=== PATIENT | male | born 1950 | race African-American/Black ===

== ENCOUNTER 2025-09-17 05:54 | Emergency (ER) | payer OTHER ==
[2025-09-17 06:23] LABS: #Basophils 0.0 thou/uL (0.0-0.2); #Eosinophils 0.3 thou/uL (0.0-0.7); #Lymphocytes 2.4 thou/uL (1.20-3.40); #Monocytes 0.3 thou/uL (0.11-0.59); #Neutrophils 3.0 thou/uL (1.40-6.50); %Basophils 0.4 % (0.0-1.0); %Eosinophils 4.5 % (0.0-10.0); %Lymphocytes 40.4 % (21.0-51.0); %Monocytes 4.3 % (0.0-10.0); %Neutrophils 50.4 % (42.0-75.0); Hematocrit 38.9 % (42.0-52.0); Hemoglobin 12.6 g/dL (14.0-18.0); Mean Corpuscular Hemoglobin 26.1 pg (27.0-31.0); Mean Corpuscular Volume 81.0 fl (78.0-98.0); Platelet Count 138 10x3/uL (130-400); Red Blood Cell (RBC) Count 4.81 mill/uL (4.70-6.10); White Blood Cell (WBC) Count 6.0 10x3/uL (4.8-10.8)
[2025-09-17 06:33] LABS: ALT (SGPT) 71 U/L (Less than 45); AST (SGOT) 105 U/L (11-34); Albumin 3.8 g/dL (3.1-4.5); Alkaline Phosphatase 107 U/L (40-110); Anion Gap 18 mmol/L (10-20); BUN (Urea Nitrogen) 24 mg/dL (8.4-25.7); Bilirubin, Total 0.3 mg/dL (0.3-1.2); Calc. Creatinine Clearance 0 mL/min (70-130); Calcium 9.4 mg/dL (7.8-10.44); Carbon Dioxide 18 mmol/L (23-31); Chloride 107 mmol/L (98-107); Globulin 3.6 g/dL (2.4-3.5); Glucose 272 mg/dL (83-110); INR-International Normal Ratio 1.0; Potassium 4.2 mmol/L (3.5-5.1); Prothrombin Time 13.7 sec (12.0-14.7); Sodium 139 mmol/L (136-145)
[2025-09-17 06:34] LABS: PTT 28.1 sec (22.9-36.1)
[2025-09-17 06:36] LABS: Troponin I 0.024 ng/mL (< 0.028)
[2025-09-17] MEDS ORDERED: NOREPINEPHRINE 8 MG/250 ML-D5W 250 ML ONE (06:43)
== END 2025-09-17 07:11 | disposition short-term general hospital (02) ==
LOC: NAV ERS 05:54 → EEVIPCON 05:54 → NAV ERS 07:11
DX: I46.9 Cardiac arrest, cause unspecified (principal); E11.9 Type 2 diabetes mellitus without complications; I10 Essential (primary) hypertension; Z79.82 Long term (current) use of aspirin; Z79.84 Long term (current) use of oral hypoglycemic drugs; Z79.899 Other long term (current) drug therapy
CPT/HCPCS: 36415; 51702; 71045; 80053; 83880; 84484; 85025; 85610; 85730; 93005; 94760; 96374